=== PATIENT | male | born 1955 | race Caucasian/White ===

== ENCOUNTER → 2024-05-10 | Outpatient (CLI) | payer OTHER, SELFPAY ==
--- NOTE | 2024-05-10 09:28 | XR_ITS ---
Examination: Esophagram standard Upright PA chest single view Upright soft tissue lateral neck single view Fluoroscopy 27 spot fluoroscopic films of the esophagus Exam date and time: May 10, 2024 0938 hours INDICATIONS: Difficulty swallowing 5 years getting worse TECHNIQUE AND FINDINGS: Upright PA chest single view demonstrates normal heart size, lungs are clear Old fracture right clavicle Soft tissue lateral neck single view demonstrates advanced degenerative disc disease C5-C6, C6-C7 with moderate cervical spondylosis Patient swallowed thin barium with 27 spot fluoroscopic films of the esophagus obtained Primary peristaltic esophageal waves are noted There are secondary esophageal contractions There is mild intermittent gastroesophageal reflux There is no stricture the gastroesophageal junction Small sliding esophageal hernia IMPRESSION: Mild esophageal dysmotility Mild intermittent gastroesophageal reflux There is no stricture at the gastroesophageal junction
== END | disposition home or self-care (01) ==
LOC: CDIM 09:22
PROVIDERS: PCP Family Medicine; Referring Provider Family Medicine; Visit Provider Family Medicine
DX: K21.9 Gastro-esophageal reflux disease without esophagitis (principal); K22.89 Other specified disease of esophagus
CPT/HCPCS: 74220

== ENCOUNTER → 2024-07-17 | Outpatient (CLI) | payer OTHER, SELFPAY ==
[2024-07-17 14:29] LABS: Basophils % (Auto) 1 % (0-2.5); Eosinophils # (Auto) 0.3 Thou/mm3 (0.0-0.5); Eosinophils % (Auto) 6 % (0-10); Hematocrit 39.3 % (41.0-53.0); Hemoglobin 13.8 g/dL (13.5-16.0); Immature Granulocytes % (Auto) 0 % (0-0); Immature Granulocytes Auto 0.01 Thou/mm3 (0.00-0.00); Lymphocytes # (Auto) 1.9 Thou/mm3 (1.0-4.8); Lymphocytes % (Auto) 38 % (10-50); Mean Corpuscular HGB Conc 35.1 g/dl (31.0-37.0); Mean Corpuscular Hemoglobin 30.5 pg (25.0-35.0); Mean Corpuscular Volume 87 fL (80-100); Monocytes # (Auto) 0.6 Thou/mm3 (0.0-0.8); Monocytes % (Auto) 13 % (0-12); Neutrophils # (Auto) 2.2 Thou/mm3 (1.8-7.7); Neutrophils % (Auto) 43 % (37-80); Nucleated Red Blood Cell % 0 /100 WBC (0); Platelet Count 189 Thou/mm3 (140-440); RDW Standard Deviation 42.2 fL (35.1-43.9); Red Blood Count 4.52 Miln/mm3 (4.50-5.90)
[2024-07-17 14:51] LABS: Alanine Aminotransferase 40 U/L (10-49); Albumin, Serum 4.5 gm/dL (3.4-4.8); Albumin/Globulin Ratio 2.3 (1.2-2.2); Alkaline Phosphatase 87 U/L (46-116); Anion Gap 5 (7-16); Aspartate Amino Transferase 25 U/L (0-34); BUN/Creatinine Ratio 18 Ratio (12-20); Bilirubin,Total 0.5 mg/dL (0.3-1.2); Blood Urea Nitrogen 14 mg/dL (9-23); Calcium 9.7 mg/dL (8.3-10.6); Calcium (Corrected) 9.7 mg/dL (8.5-10.1); Carbon Dioxide 28.9 mMol/L (20.0-31.0); Chloride 105 mMol/L (98-107); Cholesterol 272 mg/dL (132-200); Creatinine (Component) 0.8 mg/dL (0.6-1.3); Glucose 96 mg/dL (74-106); Glucose Estimated Average 120 mg/dL (80-131); HDL Cholesterol 54 mg/dL (40-60); Hemoglobin A1C 5.8 % Hgb (4.8-6.0); LDL Cholesterol,Calculated 172 mg/dL (0-130); Osmolality,Calculated 278 (275-295); Potassium 4.1 mMol/L (3.4-5.1); Sodium 139 mMol/L (136-145); Total Protein 6.5 gm/dL (5.7-8.2); Triglycerides 232 mg/dL (30-150); eGFR > 60 See Note
[2024-07-17 14:52] LABS: Thyroid Stimulating Hormone 1.85 uIU/mL (0.55-4.78)
== END | disposition home or self-care (01) ==
LOC: COPL 13:50
PROVIDERS: PCP Family Medicine; Referring Provider Family Medicine; Visit Provider Family Medicine
DX: R13.10 Dysphagia, unspecified (principal); R73.03 Prediabetes; E78.2 Mixed hyperlipidemia; N40.0 Benign prostatic hyperplasia without lower urinary tract symptoms
CPT/HCPCS: 36415; 80053; 80061; 83036; 84443; 85025

== ENCOUNTER → 2024-11-27 | Outpatient (CLI) | payer OTHER, SELFPAY ==
[2024-11-27 14:32] LABS: Prostate Specific Antigen 0.37 ng/mL (0-4.00)
[2024-11-27 14:35] LABS: Glucose Estimated Average 114 mg/dL (80-131); Hemoglobin A1C 5.6 % Hgb (4.8-6.0)
[2024-11-27 14:37] LABS: Alanine Aminotransferase 32 U/L (10-49); Albumin, Serum 4.8 gm/dL (3.4-4.8); Albumin/Globulin Ratio 2.4 (1.2-2.2); Alkaline Phosphatase 68 U/L (46-116); Anion Gap 9 (7-16); Aspartate Amino Transferase 27 U/L (0-34); BUN/Creatinine Ratio 10 Ratio (12-20); Bilirubin,Total 0.7 mg/dL (0.3-1.2); Blood Urea Nitrogen 8 mg/dL (9-23); Calcium 9.3 mg/dL (8.3-10.6); Calcium (Corrected) 9.3 mg/dL (8.5-10.1); Carbon Dioxide 28.7 mMol/L (20.0-31.0); Cardiac Risk Estimate 2.3 RATIO (4.0-6.7); Chloride 102 mMol/L (98-107); Cholesterol 131 mg/dL (132-200); Creatinine (Component) 0.8 mg/dL (0.6-1.3); Glucose 94 mg/dL (74-106); HDL Cholesterol 57 mg/dL (40-60); LDL Cholesterol,Calculated 52 mg/dL (0-130); Osmolality,Calculated 277 (275-295); Potassium 4.2 mMol/L (3.4-5.1); Sodium 140 mMol/L (136-145); Total Protein 6.8 gm/dL (5.7-8.2); Triglycerides 111 mg/dL (30-150); eGFR > 60 See Note
== END | disposition home or self-care (01) ==
LOC: COPL 13:04
PROVIDERS: PCP Family Medicine; Referring Provider Family Medicine; Visit Provider Family Medicine
DX: E78.2 Mixed hyperlipidemia (principal); R73.03 Prediabetes
CPT/HCPCS: 36415; 80053; 80061; 83036; 84153

== ENCOUNTER 2024-11-28 10:41 | Day surgery (SDC) | payer OTHER, SELFPAY ==
[2024-11-26 14:14] VITALS: BMI 32.9
--- NOTE | 2024-11-27 07:00 | EKG_ITS ---
[facility] Test Date: 2024-11-27 Pat Name: MOY KENNEDY Department: Room: - Gender: Male Sheet Metal Supervisor: ALAINA : 1955 Requested By: Gokul Clement Order Number: [id number] Reading MD: Gokul Clement Measurements Intervals Greer Rate: 67 P: 37 NM: 163 QRS: 8 QRSD: 116 T: 10 QT: 400 QTc: 425 Interpretive Statements SINUS RHYTHM INCOMPLETE RIGHT BUNDLE BRANCH BLOCK [90+ ms QRS DURATION, TERMINAL R IN V1/V2, 40+ ms S IN I/aVL/V4/V5/V6] No previous ECG available for comparison /[id number]/[email or web address]/[id number]
[2024-11-27 13:27] LABS: Anion Gap 8 (7-16); BUN/Creatinine Ratio 9 Ratio (12-20); Blood Urea Nitrogen 7 mg/dL (9-23); Calcium 9.2 mg/dL (8.3-10.6); Carbon Dioxide 27.9 mMol/L (20.0-31.0); Chloride 103 mMol/L (98-107); Creatinine (Component) 0.8 mg/dL (0.6-1.3); Estimated Creatinine Clearance 106.9 mL/min (>60); Glucose 99 mg/dL (74-106); Osmolality,Calculated 275 (275-295); Sodium 139 mMol/L (136-145); eGFR > 60 See Note
[2024-11-27 13:30] LABS: Basophils % (Auto) 1 % (0-2.5); Eosinophils # (Auto) 0.2 Thou/mm3 (0.0-0.5); Eosinophils % (Auto) 5 % (0-10); Hematocrit 42.4 % (41.0-53.0); Hemoglobin 14.6 g/dL (13.5-16.0); Immature Granulocytes % (Auto) 0 % (0-0); Immature Granulocytes Auto 0.01 Thou/mm3 (0.00-0.00); Lymphocytes # (Auto) 1.3 Thou/mm3 (1.0-4.8); Lymphocytes % (Auto) 28 % (10-50); Mean Corpuscular HGB Conc 34.4 g/dl (31.0-37.0); Mean Corpuscular Hemoglobin 30.9 pg (25.0-35.0); Mean Corpuscular Volume 90 fL (80-100); Monocytes # (Auto) 0.5 Thou/mm3 (0.0-0.8); Monocytes % (Auto) 11 % (0-12); Neutrophils # (Auto) 2.5 Thou/mm3 (1.8-7.7); Neutrophils % (Auto) 56 % (37-80); Nucleated Red Blood Cell % 0 /100 WBC (0); Platelet Count 178 Thou/mm3 (140-440); RDW Standard Deviation 42.6 fL (35.1-43.9); Red Blood Count 4.73 Miln/mm3 (4.50-5.90); White Blood Count 4.5 Thou/mm3 (3.8-10.6)
[2024-11-27 13:35] LABS: Partial Thromboplastin Time 27.2 Seconds (22.0-36.0); Prothrombin Time 11.2 Seconds (9.0-12.2)
[2024-11-28] VITALS (10 sets, daily range): BP systolic 106–139; BP diastolic 56–95; PULSE 60–77; RESP 13–22; TEMP 36.1–36.4; O2SAT 92–97; BMI 32.5
--- NOTE | 2024-11-28 12:30 | PD.CARDCATH ---
Cardiac Cath Procedure Procedure Name Date of procedure: 11/28/24 PERFORMANCE ENGINEER: Gokul Clement MD PROCEDURE PERFORMED: 1. Left heart cardiac catheterization including right, left coronary angiograms and left ventriculogram 2. Ultrasound-guided access of the right radial artery 3. Conscious sedation for 30 minutes. Procedure Narrative HISTORY AND INDICATIONS: A 68 year-old male with PMHx HLD, pre-diabetes, DAILY on CPAP, GERD, tension headache, came initially to the office for evaluation of chest pain. Patient had ischemic cardiac work up and Nuclear stress test showed that mildly decreased uptake in the inferoseptal and inferior regions of the stress test indicating possible reversible ischemia. Patient EF is also mildly low at 49%. Patient was brought in for an elective cardiac catheterization. Patient was explained the risk benefits and alternatives of performing a left heart cardiac catheterization including the risk of bleeding, heart attack, stroke and in detail and the agreeable for the procedure. Consent signed, placed in the chart and H&P updated. DESCRIPTION OF PROCEDURE: The patient was brought to the cardiac catheterization lab and all asceptic precautions were followed. Patient was given 1 Mg of Versed and 50 mcg of fentanyl for moderate conscious sedation. 2 mL of lidocaine was given in the right wrist. The right radial artery was accessed via the ultrasound guidance as well as micropuncture technique. A 6 [place] glide sheath was introduced. We then used a 5 [place] TIG 4 catheter to perform the left and right coronary angiograms as well as a left ventriculogram which showed the following findings. 1. Left ventricular ejection fraction was normal at 55 to 60% without any regional wall motion abnormalities. LVEDP was normal at 15 mmHg. There was no significant transvalvular aortic gradient. 2. Right dominant circulation 3. Left main artery is a large-caliber vessel without any significant stenosis. 4. LAD is a large sized artery with mild stenosis. A medium size diagonal with 20-30% stenosis in the proximal segment. 5. LCx is a large sized artery with 40-50% stenosis in the proximal segment. A medium OM1, OM2 and small OM3 without any significant disease. 6. RCA is a large artery with 30% stenosis in the mid segment. A medium RPDA and RPL without any significant disease. A radial band was used to achieve the hemostasis of the right radial artery access. Patient will be monitored in the cardiac cardiac catheterization technician for the next 2 to 3 hours and will be discharged home / telemetry later today if hemodynamically stable. Complications: None Specimens: None Blood loss: Estimated 5-10 ml Summary/findings: 1. Abnormal Stress test: LHC showed moderate CAD with 40-50% stenosis of proximal LCx, 20-30% stenosis of proximal Diagonal 1 and mid RCA, and mild 20% disease of LAD, with rest of coronaries without any angiographically significant obstruction. 2. LVEF was normal at 55-60% and normal LVEDP of 15 mmHg. No transvalvular aortic gradient. Recommendations: 1. Recommended aggressive risk factor modification and aggressive medical treatment 2. Recommended no lifting more than 5 pounds for next 7-10 days and follow up in my office in 7 days. Gokul Clement MD Interventional Cardiology.
== END 2024-11-28 15:40 | disposition home or self-care (01) ==
PROVIDERS: PCP Family Medicine; Referring Provider Internal Medicine Cardiovascular Disease; Visit Provider Internal Medicine Cardiovascular Disease
PROC: (CPT 93458; principal; 2024-11-28 11:30)
PROC: (CPT 93458; 2024-11-28 11:30)
DX: I25.119 Atherosclerotic heart disease of native coronary artery with unspecified angina pectoris (principal); E78.2 Mixed hyperlipidemia; E66.9 Obesity, unspecified; G47.33 Obstructive sleep apnea (adult) (pediatric); G44.209 Tension-type headache, unspecified, not intractable; K21.9 Gastro-esophageal reflux disease without esophagitis
CPT/HCPCS: 93458; 36415; 80048; 85025; 85610; 85730; 93005; 99152; A4649; C1769; C1887; C1894; J0171; J0461; J1643; J2250; J2310; J2371; J3010; J3490; Q9967; J2305

== ENCOUNTER → 2025-04-15 | Outpatient (CLI) | payer OTHER, SELFPAY ==
[2025-04-15 12:58] LABS: Alanine Aminotransferase 38 U/L (10-49); Albumin, Serum 4.9 gm/dL (3.4-4.8); Albumin/Globulin Ratio 3.8 (1.2-2.2); Alkaline Phosphatase 60 U/L (46-116); Anion Gap 6 (7-16); Aspartate Amino Transferase 31 U/L (0-34); BUN/Creatinine Ratio 13 Ratio (12-20); Bilirubin,Total 0.6 mg/dL (0.3-1.2); Blood Urea Nitrogen 10 mg/dL (9-23); Calcium 9.5 mg/dL (8.3-10.6); Calcium (Corrected) 9.5 mg/dL (8.5-10.1); Carbon Dioxide 33.4 mMol/L (20.0-31.0); Cardiac Risk Estimate 2.9 RATIO (4.0-6.7); Chloride 103 mMol/L (98-107); Cholesterol 147 mg/dL (132-200); Creatinine (Component) 0.8 mg/dL (0.6-1.3); Globulin 1.3 gm/dL (2.3-3.5); Glucose 108 mg/dL (74-106); HDL Cholesterol 50 mg/dL (40-60); LDL Cholesterol,Calculated 81 mg/dL (0-130); Osmolality,Calculated 283 (275-295); Potassium 5.3 mMol/L (3.4-5.1); Sodium 142 mMol/L (136-145); Total Protein 6.2 gm/dL (5.7-8.2); Triglycerides 79 mg/dL (30-150); eGFR > 60 See Note
== END | disposition home or self-care (01) ==
LOC: COPL 12:01
PROVIDERS: PCP Family Medicine; Referring Provider Family Medicine; Visit Provider Family Medicine
DX: E78.2 Mixed hyperlipidemia (principal)
CPT/HCPCS: 36415; 80053; 80061

== ENCOUNTER → 2025-05-20 | Outpatient (CLI) | payer OTHER, SELFPAY ==
--- NOTE | 2025-05-20 14:30 | XR_ITS ---
Examination: Bone densitometry Date and time of exam: May 20, 2025, 1451 hours INDICATIONS: 69-year-old male with diagnosis age-related osteoporosis Technique: Lumbar spine and hip total bone mineralization values of an calculated. Peak reference and age match control results have been displayed. Findings: Lumbar spine total bone mineralization is 1.318 gm/cm2. This is 2.1 standard deviations above peak reference. This is 3.0 standard deviations above age-matched controls. Hip total bone mineralization is 1.132 gm/cm2 This is 0.7 standard deviations above peak reference. This is 1.4 standard deviations above age-matched controls Impression: There is normal mineralization based on lumbar spine measurements. There is normal mineralization based on hip measurements
== END | disposition home or self-care (01) ==
PROVIDERS: PCP Family Medicine; Referring Provider Family Medicine; Visit Provider Family Medicine
DX: M81.0 Age-related osteoporosis without current pathological fracture (principal)
CPT/HCPCS: 77080